=== PATIENT | female | born 1950 | race Caucasian/White ===

== ENCOUNTER → 2017-08-16 | Outpatient (CLI) | payer MEDICARE, OTHER ==
[~2017-08-16] MED LIST: AMIO200T42 PO; ASPI-515 PO; HYDR-3240 PO; ONDA4TAB10 PO
== END | disposition home or self-care (01) ==
LOC: CVU 09:38
PROVIDERS: ATTEND Physician Assistant Medical
DX: Q23.1 Congenital insufficiency of aortic valve (principal)
CPT/HCPCS: 93306

== ENCOUNTER 2017-12-31 17:38 | Emergency (ER) | payer MEDICARE, OTHER ==
[~2017-12-31] VITALS: Ht 162.6 cm; Wt 58.0 kg
[2017-12-31 18:27] LABS: BASOPHILS # (AUTO) 0.04 x10^3/uL (0-0.1); BASOPHILS % (AUTO) 1 % (0-1); EOSINOPHILS % (AUTO) 2 % (1-7); LYMPHOCYTES # (AUTO) 1.89 x10^3/uL (1-3.4); LYMPHOCYTES % (AUTO) 34 % (22-44); MD NO; MEAN CORPUSCULAR HEMOGLOBIN 32.6 pg (27.0-34.8); MEAN CORPUSCULAR HGB CONC 34.3 g/dL (32.4-35.8); MEAN CORPUSCULAR VOLUME 95.2 fL (80-100); MEAN PLATELET VOLUME 8.9 fL (7.4-10.4); MONOCYTES # (AUTO) 0.59 x10^3/uL (0.2-0.8); MONOCYTES % (AUTO) 11 % (2-9); NEUTROPHILS # (AUTO) 2.99 x10^3/uL (1.8-6.8); NEUTROPHILS % (AUTO) 53 % (42-75); PLATELET COUNT 170 x10^3/uL (130-400); RED BLOOD COUNT 4.73 x10^6/uL (3.82-5.3); RED CELL DISTRIBUTION WIDTH 12.8 % (9.6-15.2)
[2017-12-31 18:38] LABS: ALBUMIN 3.9 g/dL (3.4-5.0); ANION GAP 7 mmol/L (5-15); CALCIUM 8.9 mg/dL (8.5-10.1); CHLORIDE 107 mmol/L (98-107); CREATININE 0.92 mg/dL (0.55-1.02)
[2017-12-31 18:42] LABS: TROPONIN I 0.024 ng/mL (0.000-0.045)
[2017-12-31] MEDS ORDERED: DILTIAZEM 125 MG in DEXTROSE 5% 100 ML IV SCH (18:44)
[2017-12-31 19:00] LABS: INTERNATIONAL NORMALIZED RATIO 1.07 (0.93-1.1)
[2017-12-31] MEDS ORDERED: DILTIAZEM 5 MG/ML, 10ML IVPush ONE (19:00)
[2017-12-31] MEDS ORDERED: DILTIAZEM 5 MG/ML, 5ML IV ONE (19:00)
[2017-12-31 20:37] VITALS: BP 115/68
== END 2017-12-31 20:40 | disposition home or self-care (01) ==
LOC: ED 20:15
DX: I48.0 Paroxysmal atrial fibrillation (principal); Z90.89 Acquired absence of other organs
CPT/HCPCS: 36415; 71045; 80048; 80162; 82040; 83735; 83880; 84484; 85025; 85610; 85730; 93005; 96365; 96366; 96375

== ENCOUNTER 2018-05-12 10:16 | Outpatient (CLI) | payer MEDICARE, OTHER ==
[2018-05-12] MEDS ORDERED: DIGO125T PO (11:00)
[2018-05-12] MEDS ORDERED: RIVA20TA PO (11:00)
[2018-05-12] MEDS ORDERED: DILT120C64 PO (11:00)
[2018-05-12] MEDS ORDERED: GLUT25PO PO (11:04)
[2018-05-12] MEDS ORDERED: CALC-126 PO (11:04)
[2018-05-12 11:30] LABS: BASOPHILS # (AUTO) 0.03 x10^3/uL (0-0.1); BASOPHILS % (AUTO) 0 % (0-1); EOSINOPHILS # (AUTO) 0.03 x10^3/uL (0-0.4); EOSINOPHILS % (AUTO) 1 % (1-7); LYMPHOCYTES # (AUTO) 1.33 x10^3/uL (1-3.4); LYMPHOCYTES % (AUTO) 21 % (22-44); MD NO; MEAN CORPUSCULAR HEMOGLOBIN 32.4 pg (27.0-34.8); MEAN CORPUSCULAR VOLUME 95.3 fL (80-100); MEAN PLATELET VOLUME 8.9 fL (7.4-10.4); MONOCYTES # (AUTO) 0.51 x10^3/uL (0.2-0.8); MONOCYTES % (AUTO) 8 % (2-9); NEUTROPHILS # (AUTO) 4.58 x10^3/uL (1.8-6.8); NEUTROPHILS % (AUTO) 71 % (42-75); PLATELET COUNT 161 x10^3/uL (130-400); RED BLOOD COUNT 4.64 x10^6/uL (3.82-5.3); RED CELL DISTRIBUTION WIDTH 12.3 % (9.6-15.2)
[2018-05-12 13:02] LABS: ANION GAP 6 mmol/L (5-15); CALCIUM 8.9 mg/dL (8.5-10.1); CHLORIDE 108 mmol/L (98-107)
[2018-05-12 13:03] LABS: CREATININE 0.85 mg/dL (0.55-1.02)
[2018-05-16] MEDS ORDERED: LIDOCAINE 2%, 20ML ONE (11:12)
== END 2018-05-12 23:59 | disposition home or self-care (01) ==
LOC: STAR 10:16
PROVIDERS: ATTEND Internal Medicine Cardiovascular Disease
DX: Z01.818 Encounter for other preprocedural examination (principal); I47.1 Supraventricular tachycardia; R00.2 Palpitations
CPT/HCPCS: 36415; 71046; 80048; 85025

== ENCOUNTER 2018-05-16 06:39 | Day surgery (SDC) | payer MEDICARE, OTHER ==
[2018-05-12 10:55] VITALS: BP 140/78
[~2018-05-16] VITALS: Ht 161.3 cm; Wt 56.3 kg
[~2018-05-16 06:39] MED LIST changes: +CALC-126 PO; +DIGO125T PO; +DILT120C64 PO; +GLUT25PO PO; +RIVA20TA PO
[2018-05-16] MEDS ORDERED: SODIUM CHLORIDE 0.9% 1,000 ML IV SCH (07:02)
[2018-05-16 07:09] VITALS: BP 140/78
[2018-05-16] MEDS ORDERED: FENTANYL PF 250 MCG/5ML ONE ×2 (07:38→08:05)
[2018-05-16] MEDS ORDERED: PROPOFOL 50 ML ONE (07:38)
[2018-05-16] MEDS ORDERED: MIDAZOLAM 1 MG/ML, 2ML ONE (07:38)
[2018-05-16] MEDS ORDERED: MIDAZOLAM 1 MG/ML, 5ML ONE (08:05)
[2018-05-16] MEDS ORDERED: ISOPROTERENOL 0.2MG/ML, 5ML ONE (08:08)
[2018-05-16] MEDS ORDERED: LIDOCAINE 1%, 20ML ONE (08:09)
[2018-05-16] MEDS ORDERED: ADENOSINE 6 MG/2 ML ONE ×2 (08:17→10:21)
[2018-05-16] MEDS ORDERED: HEPARIN 1,000 UNITS/ML, 10ML ONE (10:21)
[2018-05-16] MEDS ORDERED: ACETAMINOPHEN 325 MG TABLET PO PRN (12:30)
[2018-05-16] MEDS ORDERED: ACETAMINOPHEN 325 MG TABLET ONE (16:16)
[2018-05-17] MEDS ORDERED: TEMPLATE NON-FORMULARY MED. (Rivaroxaban** (Xarelto**) 20 MG) PO SCH (09:00)
[2018-05-17] MEDS ORDERED: TEMPLATE NON-FORMULARY MED. (Diltiazem Hcl (Cartia Xt) 120 MG) PO SCH (09:00)
[2018-05-17] MEDS ORDERED: DIGOXIN 0.125 MG TABLET PO SCH (09:00)
[2018-05-17] MEDS ORDERED: GLUTAMINE PO SCH (09:00)
== END 2018-05-16 16:33 | disposition home or self-care (01) ==
LOC: CACL 06:39
PROVIDERS: ATTEND Internal Medicine Cardiovascular Disease
DX: I47.1 Supraventricular tachycardia (principal); I48.91 Unspecified atrial fibrillation; Z98.890 Other specified postprocedural states; Z88.8 Allergy status to other drugs, medicaments and biological substances
CPT/HCPCS: 85347; 93613; 93621; 93623; 93653; 99156; 99157; C1730; C1766; C1894; C2630; J0153; J1644; J2250; J2704; J3010; J3490

== ENCOUNTER → 2020-01-25 | Outpatient (CLI) | payer MEDICARE, OTHER ==
[~2020-01-25] MED LIST changes: -DIGO125T PO; +DIGO125T85 PO
== END | disposition home or self-care (01) ==
LOC: CFH 10:07
PROVIDERS: ATTEND Family Medicine
DX: Z12.31 Encounter for screening mammogram for malignant neoplasm of breast (principal); M81.0 Age-related osteoporosis without current pathological fracture
CPT/HCPCS: 76641; 77063; 77067; 77080